=== PATIENT | male | born 1945 | race Caucasian/White ===

== ENCOUNTER 2022-07-15 07:25 | Outpatient (CLI) | payer MEDICARE, SELFPAY ==
--- NOTE | 2022-07-15 07:52 | EST_ITS ---
Patient Info Name: Aston Hunter Age: 76 years : 1945 Gender: Male Ht: 69 in Wt: 195 lbs BSA: 2.10 m2 HR: 66 bpm BP: 149 / 74 mmHg Heart Rhythm: Sinus Rhythm Exam Date: 07/15/2022 8:52 AM Exam Location: [facility] Stress Patient Status: Outpatient Admit Date: 07/15/2022 Staff Ordering Physician: Delfino Newberry DO Attending Provider: Delfino Newberry DO Exercise Technologist: Marcia Wagner CT Exercise Physician: Delfino Newberry DO Exam Type: CA stress test treadmill Study Info Indications I51.9 - HEART DISEASE A regadenoson stress test was performed. Summary 1. 1. Negative Oumar exercise stress test for ischemic ST changes by ECG criteria. 2. 2. Reduced functional capacity, achieving 7 METs of workload. 3. 3. Baseline hypertension with hypertensive response to exercise. 4. 4. Appropriate HR response to exercise. 5. 5. Appropriate HR recovery at 1 minute post exercise. 6. 6. No imaging with stress testing. 7. 7. Patient informed of the above results. Protocol: [facility] Stress ECG Details Stage: REST Duration (min): 1 min : 9 sec Speed (mph): 0.0 Grade (%): 0 HR (bpm): 69 SBP (mmHg): 149 DBP (mmHg): 74 METS: --- Stage: REST Duration (min): 5 min : 51 sec Speed (mph): 0.0 Grade (%): 0 HR (bpm): 82 SBP (mmHg): 149 DBP (mmHg): 74 METS: --- Stage: STAGE 1 Duration (min): 1 min : 0 sec Speed (mph): 1.7 Grade (%): 10 HR (bpm): 93 SBP (mmHg): 149 DBP (mmHg): 74 METS: --- Stage: STAGE 1 Duration (min): 2 min : 0 sec Speed (mph): 1.7 Grade (%): 10 HR (bpm): 106 SBP (mmHg): 149 DBP (mmHg): 74 METS: --- Stage: STAGE 1 Duration (min): 3 min : 0 sec Speed (mph): 1.7 Grade (%): 10 HR (bpm): 112 SBP (mmHg): 196 DBP (mmHg): 77 METS: --- Stage: STAGE 2 Duration (min): 1 min : 0 sec Speed (mph): 2.5 Grade (%): 12 HR (bpm): 130 SBP (mmHg): 196 DBP (mmHg): 77 METS: --- Stage: STAGE 2 Duration (min): 2 min : 0 sec Speed (mph): 2.5 Grade (%): 12 HR (bpm): 139 SBP (mmHg): 212 DBP (mmHg): 83 METS: --- Stage: STAGE 2 Duration (min): 2 min : 0 sec Speed (mph): 2.5 Grade (%): 12 HR (bpm): 139 SBP (mmHg): 212 DBP (mmHg): 83 METS: --- Stage: RECOVERY Duration (min): 0 min : 59 sec Speed (mph): 0.0 Grade (%): 0 HR (bpm): 114 SBP (mmHg): 212 DBP (mmHg): 83 METS: --- Stage: RECOVERY Duration (min): 1 min : 59 sec Speed (mph): 0.0 Grade (%): 0 HR (bpm): 97 SBP (mmHg): 212 DBP (mmHg): 83 METS: --- Stage: RECOVERY Duration (min): 2 min : 59 sec Speed (mph): 0.0 Grade (%): 0 HR (bpm): 85 SBP (mmHg): 155 DBP (mmHg): 73 METS: --- Stage: RECOVERY Duration (min): 3 min : 1 sec Speed (mph): 0.0 Grade (%): 0 HR (bpm): 85 SBP (mmHg): 155 DBP (mmHg): 73
--- NOTE | 2022-07-15 07:52 | ECHO_ITS ---
Patient Info Name: Aston Hunter Age: 76 years : 1945 Gender: Male Ht: 69 in Wt: 195 lbs BSA: 2.10 m2 HR: 65 bpm BP: 145 / 79 mmHg Technical Quality: Fair Exam Date: 07/15/2022 8:08 AM Exam Location: [facility] Patient Status: Outpatient Admit Date: 07/15/2022 Staff Ordering Physician: Delfino Newberry DO Pencil Inspector: Kayce Zelaya RDCS Attending Provider: Delfino Newberry DO Referring Physician: Rohith MAHARAJ; Exam Type: CA echo doppler color flow Study Info Indications I51.9 - Heart disease, unspecified Complete two-dimensional, color flow and Doppler transthoracic echocardiogram is performed. Summary 1. Complete two-dimensional, color flow and Doppler transthoracic echocardiogram is performed. 2. Left ventricular chamber dimension is normal. 3. Left ventricular systolic function is normal, estimated at 55-60%. 4. The left ventricular diastolic function is grade II diastolic dysfunction. 5. E/e' 12 is mildly elevated. 6. Global longitudinal strain is abnormal at -12.9%. 7. There is moderate aortic valve sclerosis. 8. The mitral valve has moderately calcified annulus. 9. No pulmonary hypertension, estimated pulmonary arterial systolic pressure is 21 mmHg. 10. The aortic root size at the sinus of Valsalva is borderline dilated at 4.0 cm. 11. Dilated inferior vena cava with >50% collapse upon inspiration consistent with elevated right atrial pressure, 10 mmHg. Left Ventricle E/e' 12 is mildly elevated. Global longitudinal strain is abnormal at -12.9%. Left ventricular chamber dimension is normal. Left ventricular systolic function is normal, estimated at 55-60%. The left ventricular diastolic function is grade II diastolic dysfunction. Right Ventricle Right ventricular chamber dimension is normal. Right ventricular systolic function is normal. Left Atria Left atrial chamber dimension is normal. Right Atria Right atrial chamber dimension is normal. Aortic Valve The aortic valve is trileaflet. There is moderate aortic valve sclerosis. There is no aortic valve stenosis. There is no aortic valve regurgitation. Pulmonic Valve There is no pulmonic regurgitation. Mitral Valve The mitral valve has moderately calcified annulus. There is no mitral valve stenosis. There is no mitral valve regurgitation. Tricuspid Valve There is no tricuspid valve regurgitation. No pulmonary hypertension, estimated pulmonary arterial systolic pressure is 21 mmHg. Pericardium/Pleural There is no pericardial effusion. Inferior Vena Cava Dilated inferior vena cava with >50% collapse upon inspiration consistent with elevated right atrial pressure, 10 mmHg. Aorta The aortic root size at the sinus of Valsalva is borderline dilated at 4.0 cm. Left Ventricular Outflow Tract Name Value Normal LVOT 2D LVOT Diameter 2.0 cm LVOT Doppler LVOT Peak Gradient 5 mmHg LVOT Mean Gradient 2 mmHg LVOT VTI 25 cm LVOT VTI/AV VTI Ratio 1.1 LVOT Stroke Volume
== END 2022-07-15 07:26 | disposition home or self-care (01) ==
LOC: ANHCARD 07:30
PROVIDERS: PCP Family Medicine; Visit Provider Internal Medicine Cardiovascular Disease
DX: I51.9 Heart disease, unspecified (principal); R93.1 Abnormal findings on diagnostic imaging of heart and coronary circulation; I35.8 Other nonrheumatic aortic valve disorders
CPT/HCPCS: 93017; 93306

== ENCOUNTER 2023-06-29 08:32 | Outpatient (CLI) | payer MEDICARE, SELFPAY ==
--- NOTE | 2023-06-29 08:54 | ECHO_ITS ---
Patient Info Name: Aston Hunter Age: 77 years : 1945 Gender: Male Ht: 69 in Wt: 195 lbs BSA: 2.10 m2 HR: 81 bpm BP: 144 / 89 mmHg Technical Quality: Fair Exam Date: 06/29/2023 9:10 AM Exam Location: [facility] Patient Status: Outpatient Admit Date: 06/29/2023 Staff Ordering Physician: Delfino Newberry DO Food Preparer: Michela Preston RDCS Attending Provider: Delfino Newberry DO Referring Physician: Rohith MAHARAJ; Exam Type: CA echo doppler color flow Study Info Indications I51.9 - Heart disease, unspecified Complete two-dimensional, color flow and Doppler transthoracic echocardiogram is performed. Summary 1. Complete two-dimensional, color flow and Doppler transthoracic echocardiogram is performed. 2. Left ventricular chamber dimension is normal. 3. Left ventricular systolic function is normal, estimated at 60-65%. 4. There is mild concentric increased left ventricular wall thickness. 5. The left ventricular diastolic function is grade I diastolic dysfunction. 6. E/e' 10 is mildly elevated. 7. Global longitudinal strain is abnormal at -16.2%. 8. There is mild aortic valve sclerosis. 9. The mitral valve has moderately calcified annulus. 10. There is trace mitral valve regurgitation. 11. No pulmonary hypertension, estimated pulmonary arterial systolic pressure is 20 mmHg. 12. There is trace pulmonic regurgitation. Left Ventricle E/e' 10 is mildly elevated. Global longitudinal strain is abnormal at -16.2%. Left ventricular chamber dimension is normal. Left ventricular systolic function is normal, estimated at 60-65%. There is mild concentric increased left ventricular wall thickness. The left ventricular diastolic function is grade I diastolic dysfunction. Right Ventricle Right ventricular chamber dimension is normal. Right ventricular systolic function is normal. Left Atria Left atrial chamber dimension is normal. Right Atria Right atrial chamber dimension is normal. Aortic Valve The aortic valve is probable trileaflet. There is mild aortic valve sclerosis. There is no aortic valve stenosis. There is no aortic valve regurgitation. Pulmonic Valve There is trace pulmonic regurgitation. Mitral Valve The mitral valve has moderately calcified annulus. There is no mitral valve stenosis. There is trace mitral valve regurgitation. Tricuspid Valve There is no tricuspid valve regurgitation. No pulmonary hypertension, estimated pulmonary arterial systolic pressure is 20 mmHg. Pericardium/Pleural There is no pericardial effusion. Inferior Vena Cava Normal inferior vena cava with >50% collapse upon inspiration consistent with normal right atrial pressure, 5 mmHg. Aorta The aortic root size at the sinus of Valsalva is normal. Left Ventricular Outflow Tract Name Value Normal LVOT 2D LVOT Diameter 2.1 cm LVOT Doppler LVOT Peak Gradient 3 mmHg LVOT Mean Gradient 2 mmHg LVOT VTI 20 cm LVOT VTI/AV VTI Ratio 0.8 LVOT Stroke Volume 71 ml LVOT CO 14.9 l/min LVOT CI
== END 2023-06-29 08:33 | disposition home or self-care (01) ==
LOC: ANHCARD 08:35
PROVIDERS: PCP Family Medicine; Visit Provider Internal Medicine Cardiovascular Disease
DX: I51.9 Heart disease, unspecified (principal); I35.8 Other nonrheumatic aortic valve disorders
CPT/HCPCS: 93306